=== PATIENT | female | born 1960 | race Caucasian/White ===

== ENCOUNTER 2024-10-30 13:40 | Observation (INO) | payer MEDICARE, OTHER ==
--- NOTE | 2024-10-30 14:44 | ED ---
General Adult HPI - General Chief complaint: Nausea/Vomiting/Diarrhea Stated complaint: Transfer Time Seen by Provider: 10/30/24 13:45 Source: patient Mode of arrival: EMS Limitations: no limitations - History of Present Illness Initial comments: 64-year-old female presented to [place] with complaints of nausea, vomiting, diarrhea for 5 days. She also had dizziness. She was seen in her ER yesterday and diagnosed with gastroenteritis. She was given Zofran. Patient was discharged home with this medication but states it has not been helping. S he presented again to the emergency department and had intractable vomiting with a low CO2. They did recommend transfer to a facility with higher level of care. Patient was given Zofran and fluids today in the emergency department before transfer. Patient denies headache. Does admit to room spinning sensation with pain in the left ear dizziness is worse with positional changes. She admits to generalized abdominal discomfort. No changes in her bowel or bladder habits. No other alleviating, precipitating or modifying factors - Related Data Home Medications Medication Instructions Recorded Confirmed Apixaban [Eliquis] 5 mg PO BID 10/30/24 10/30/24 Brimonidine Tartrate/Timolol 1 drop BOTH EYES BID 10/30/24 10/30/24 [Brimonidine-Timolol 0.2%-0.5%] Ergocalciferol [Vitamin D2 (1250 1,250 mcg PO WE 10/30/24 10/30/24 Mcg = 09156 Iu)] Ferrous Sulfate [Feosol] 325 mg PO BID 10/30/24 10/30/24 Isosorbide Mononitrate ER [Imdur] 60 mg PO DAILY 10/30/24 10/30/24 Losartan/Hydrochlorothiazide 1 tab PO DAILY 10/30/24 10/30/24 [Hyzaar 100-25 Tablet] Magnesium 200 mg PO DAILY 10/30/24 10/30/24 Metoprolol Succinate (ER) [Toprol 50 mg PO DAILY 10/30/24 10/30/24 Xl] Montelukast [Singulair] 10 mg PO HS 10/30/24 10/30/24 Multivitamins, Thera [Multivitamin 1 tab PO DAILY 10/30/24 10/30/24 (formulary)] Omeprazole [PriLOSEC] 40 mg PO DAILY 10/30/24 10/30/24 Ondansetron Odt [Zofran Odt] 4 mg PO Q4H PRN 10/30/24 10/30/24 Rosuvastatin [Crestor] 20 mg PO HS 10/30/24 10/30/24 Allergies Allergy/AdvReac Type Severity Reaction Status Date / Time latex Allergy Unknown Verified 10/30/24 17:01 lisinopril Allergy Swelling Verified 10/30/24 17:01 mold Allergy Unknown Verified 10/30/24 17:01 Review of Systems ROS Statement: Those systems with pertinent positive or pertinent negative responses have been documented in the HPI. ROS Other: All systems not noted in ROS Statement are negative. Past Medical History Past Medical History: Hypertension History of Any Multi-Drug Resistant Organisms: None Reported Past Surgical History: Cholecystectomy, Joint Replacement, Tubal Ligation Past Psychological History: No Psychological Hx Reported Smoking Status: Former smoker Past Alcohol Use History: None Reported Past Drug Use History: None Reported General Exam Limitations: no limitations General appearance: alert, in no apparent distress Head exam: Present: atraumatic, normocephalic, normal inspection Eye exam: Present: PERRL, EOMI, nystagmus (to the left). Absent: scleral icterus, conjunctival injection, periorbital swelling ENT exam: Present: normal exam, mucous membranes moist Neck exam: Present: normal inspection. Absent: tenderness, meningismus, l ymphadenopathy Respiratory exam: Present: normal lung sounds bilaterally. Absent: respiratory distress, wheezes, rales, rhonchi, stridor Cardiovascular Exam: Present: regular rate, normal rhythm, normal heart sounds. Absent: systolic murmur, diastolic murmur, rubs, gallop, clicks GI/Abdominal exam: Present: soft, normal bowel sounds. Absent: distended, tenderness, guarding, rebound, rigid Extremities exam: Present: normal inspection, full ROM, normal capillary refill. Absent: tenderness, pedal edema, joint swelling, calf tenderness Back exam: Present: normal inspection Neurological exam: Present: alert, oriented X3, CN II-XII intact Psychiatric exam: Present: normal affect, normal mood Skin exam: Present: warm, dry, intact, normal color. Absent: rash Course Vital Signs 10/30/24 10/30/24 10/30/24 13:42 15:04 16:00 Temperature 98.4 F Pulse Rate 96 100 102 H Respiratory 20 20 18 Rate Blood Pressure 164/105 169/105 172/103 O2 Sat by Pulse 99 99 99 Oximetry 10/30/24 10/30/24 10/30/24 18:17 21:04 22:02 Temperature Pulse Rate 100 116 H 82 Respiratory 18 18 18 Rate Blood Pressure 162/105 153/101 138/90 O2 Sat by Pulse 96 98 98 Oximetry 10/30/24 23:10 Temperature Pulse Rate 81 Respiratory 18 Rate Blood Pressure 153/98 O2 Sat by Pulse 98 Oximetry Medical Decision Making - Medical Decision Making Was pt. sent in by a medical professional or institution (, PA, [employer] LUMITE INJECTOR, urgent care, hospital, or assisted...) When possible be specific @ -Patient was sent from [place] Did you speak to anyone other than the patient for history (EMS, parent, family, police, friend...)? What history was obtained from this source @ -I spoke with the physician who transferred the patient from [place] Did you review nursing and triage notes (agree or disagree)? Why? @ -I reviewed and agree with nursing and triage notes Were old charts reviewed (outside hosp., previous admission, EMS record, old EKG, old radiological studies, urgent care reports/EKG's, assisted records)? Report findings @ -I reviewed the transfer packet from [place]. Laboratory studies were remarkable for a venous pH of 7.1. Urinalysis demonstrated 4+, only CO2 was 8. Anion gap 27. Glucose was 127. Kidney function normal CT abdomen pelvis was performed which demonstrates mild stranding surrounding the right kidney. CT brain also performed which demonstrated mild atrophy Differential Diagnosis (chest pain, altered mental status, abdominal pain women, abdominal pain men, vaginal bleeding, weakness, fever, dyspnea, syncope, headache, dizziness, GI bleed, back pain, seizure, CVA, palpatations, mental health, musculoskeletal)? @ -Differential Abdominal Pain Women: Appendicitis, Cholecystitis, diverticulosis, ischemic bowel, pancreatitis, hepatitis, UTI, gastroenteritis, AAA, incarcerated hernia, bowel obstruction, constipation, inflammatory bowel, hepatitis, peptic ulcer disease, splenic infarction, perforated viscus, vulvitis, ovarian torsion, PID, kidney stone, placenta abruption, this is not meant to be an all-inclusive list Differential Dizziness: Benign paroxysmal positional Vertigo, Meniere's disease, otitis media, acoustic neuroma, vertebrobasilar insufficiency, cerebellar stroke, encephalitis, hypovolemic, arrhythmia, coronary artery syndrome, anemia, this is not meant to be an all-inclusive list EKG interpreted by me (3pts min.). @ -Not done X-rays interpreted by me (1pt min.). @ -None done CT interpreted by me (1pt min.). @ -Yes which demonstrates no acute process U/S interpreted by me (1pt. min.). @ -None done What testing was considered but not performed or refused? (CT, X-rays, U/S, labs)? Why? @ -None What meds were considered but not given or refused? Why? @ -None Did you discuss the management of the patient with other professionals (professionals i.e. , PA, [employer] LUMITE INJECTOR, lab, RT, psych nurse, social service worker, auto transmission specialist, teacher, first officer, major case detective)? Give summary @ -Spoke with Dr. Hatfield who will admit the patient Was smoking cessation discussed for >3mins.? @ -No Was critical care preformed (if so, how long)? @ -No Were there social determinants of health that impacted care today? How? (Homelessness, low income, unemployed, alcoholism, drug addiction, transportation, low edu. Level, literacy, decrease access to med. care, fdc, rehab)? @ -No Was there de-escalation of care discussed even if they declined (Discuss DNR or withdrawal of care, Hospice)? DNR status @ -No What co-morbidities impacted this encounter? (DM, HTN, Smoking, COPD, CAD, Can cer, CVA, ARF, Chemo, Hep., AIDS, mental health diagnosis, sleep apnea, morbid obesity)? @ -None Was patient admitted / discharged? Hospital course, mention meds given and route, prescriptions, significant lab abnormalities, going to OR and other pertinent info. @ -Upon arrival patient seen and evaluated in 4. Thorough history and physical exam was performed. I patient is hooked up to D5.9 normal saline. She is given a dose of Valium for her dizziness. I completed a CT of the patient's hea d with contrast. No signs of acute occlusion. Patient will be admitted for anion gap metabolic acidosis as well as intractable vertigo. Neurology will be consulted. Patient admitted to Dr. Hatfield Undiagnosed new problem with uncertain prognosis? @ -No Drug Therapy requiring intensive monitoring for toxicity (Heparin, Nitro, Insulin, Cardizem)? @ -No Were any procedures done? @ -No Diagnosis/symptom? @ -Intractable nausea vomiting, anion gap metabolic acidosis, vertigo Acute, or Chronic, or Acute on Chronic? @ -Acute Uncomplicated (without systemic symptoms) or Complicated (systemic symptoms)? @ -Complicated Side effects of treatment? @ -No Exacerbation, Progression, or Severe Exacerbation? @ -No Poses a threat to life or bodily function? How? (Chest pain, [place], [place], pneumonia, PE, COPD, DKA, ARF, appy, cholecystitis, CVA, Diverticulitis, Homicidal, Suicidal, threat to staff... and all critical care pts) @ -No - Lab Data Result diagrams: 11/01/24 03:24 11/01/24 03:24 Lab Results 10/30/24 10/30/24 10/30/24 Range/Units 15:03 15:09 15:12 WBC 14.71 H (4.50-10.00) 10*3/uL RBC 4.94 (4.10-5.20) 10*6/uL Hgb 15.6 H (12.0-15.0) g/dL Hct 45.9 (37.2-46.3) % MCV 92.9 (80.0-97.0) fL MCH 31.6 (27.0-32.0) pg MCHC 34.0 (32.0-37.0) g/dL Plt Count 303 (140-440) 10*3/uL MPV 10.0 (9.5-12.2) fL Immature Gran % (Auto) 2.4 % Neutrophils % 88.9 % Lymphocytes % 4.6 % Monocytes % 3.7 % Eosinophils % 0.1 % Basophils % 0.3 % Immature Gran # 0.36 H (0.00-0.04) 10*3/uL Neutrophils # 13.06 H (1.80-7.70) 10*3/uL Lymphocytes # 0.68 L (0.90-5.00) 10*3/uL Monocytes # 0.55 (0.20-1.00) 10*3/uL Eosinophils # 0.01 L (0.04-0.35) 10*3/uL Basophils # 0.05 (0.00-0.10) 10*3/uL Manual Slide Review Performed Sodium (137-145) mmol/L Potassium (3.5-5.1) mmol/L Chloride (98-107) mmol/L Carbon Dioxide (22-30) mmol/L Anion Gap mmol/L BUN (7-17) mg/dL Creatinine (0.52-1.04) mg/dL Est GFR (CKD-EPI)AfAm (>60 ml/min/1.73 sqM) Est GFR (CKD-EPI)NonAf (>60 ml/min/1.73 sqM) Glucose (74-99) mg/dL POC Glucose (mg/dL) 132 H 130 H (70-110) mg/dL POC Glu Solid Waste Facility Supervisor ID Rea Leyva Calcium (8.4-10.2) mg/dL Total Bilirubin (0.2-1.3) mg/dL AST (14-36) U/L ALT (4-34) U/L Alkaline Phosphatase (38-126) U/L Total Protein (6.3-8.2) g/dL Albumin (3.5-5.0) g/dL / Range/Units 15:12 WBC (4.50-10.00) 10*3/uL RBC (4.10-5.20) 10*6/uL Hgb (12.0-15.0) g/dL Hct (37.2-46.3) % MCV (80.0-97.0) fL MCH (27.0-32.0) pg MCHC (32.0-37.0) g/dL Plt Count (140-440) 10*3/uL MPV (9.5-12.2) fL Immature Gran % (Auto) % Neutrophils % % Lymphocytes % % Monocytes % % Eosinophils % % Basophils % % Immature Gran # (0.00-0.04) 10*3/uL Neutrophils # (1.80-7.70) 10*3/uL Lymphocytes # (0.90-5.00) 10*3/uL Monocytes # (0.20-1.00) 10*3/uL Eosinophils # (0.04-0.35) 10*3/uL Basophils # (0.00-0.10) 10*3/uL Manual Slide Review Sodium 143 (137-145) mmol/L Potassium 3.7 (3.5-5.1) mmol/L Chloride 112 H (98-107) mmol/L Carbon Dioxide <5 L* (22-30) mmol/L Anion Gap mmol/L BUN 7 (7-17) mg/dL Creatinine 0.59 (0.52-1.04) mg/dL Est GFR (CKD-EPI)AfAm >90 (>60 ml/min/1.73 sqM) Est GFR (CKD-EPI)NonAf >90 (>60 ml/min/1.73 sqM) Glucose 126 H (74-99) mg/dL POC Glucose (mg/dL) (70-110) mg/dL POC Glu Solid Waste Facility Supervisor ID Calcium 10.3 H (8.4-10.2) mg/dL Total Bilirubin 0.6 (0.2-1.3) mg/dL AST 21 (14-36) U/L ALT 34 (4-34) U/L Alkaline Phosphatase 145 H (38-126) U/L Total Protein 7.7 (6.3-8.2) g/dL Albumin 4.5 (3.5-5.0) g/dL Disposition Clinical Impression: Vertigo, Nausea and vomiting, Dehydration Disposition: ADMITTED IP TO THIS [facility] Condition: Serious Is patient prescribed a controlled substance at d/c from ED?: No Time of Disposition: 17:23 Decision to Admit Reason: Admit from EC Decision Date: 10/30/24 Decision Time: 17:23
[2024-10-30 15:04] LABS: Glucose,Whole Blood 132 mg/dL (70-110)
[2024-10-30] MEDS: METOCLOPRAMIDE 5 MG/ML 2 ML VIAL IVP STA (15:09)
[2024-10-30 15:12] LABS: Glucose,Whole Blood 130 mg/dL (70-110)
[2024-10-30] MEDS: DEXTROSE 5%-0.9% NACL 1,000 ML IV SCH (15:14)
[2024-10-30 15:28] LABS: Basophils # (A) 0.05 10*3/uL (0.00-0.10); Basophils % (A) 0.3 %; Eosinophils # (A) 0.01 10*3/uL (0.04-0.35); Eosinophils % (A) 0.1 %; HCT 45.9 % (37.2-46.3); HGB 15.6 g/dL (12.0-15.0); Lymphocytes # (A) 0.68 10*3/uL (0.90-5.00); Lymphocytes % (A) 4.6 %; MCH 31.6 pg (27.0-32.0); MCHC 34.0 g/dL (32.0-37.0); MCV 92.9 fL (80.0-97.0); Monocytes # (A) 0.55 10*3/uL (0.20-1.00); Monocytes % (A) 3.7 %; Neutrophils # (A) 13.06 10*3/uL (1.80-7.70); Neutrophils % (A) 88.9 %; RBC 4.94 10*6/uL (4.10-5.20); RDW 16.2 % (11.5-14.5); WBC 14.71 10*3/uL (4.50-10.00)
[2024-10-30 15:48] LABS: Platelet Count 303 10*3/uL (140-440)
[2024-10-30 15:50] LABS: ALT 34 U/L (4-34); AST 21 U/L (14-36); African American GFR (CKD) >90 (>60 ml/min/1.73 sqM); Albumin 4.5 g/dL (3.5-5.0); Alkaline Phosphatase 145 U/L (38-126); Blood Urea Nitrogen 7 mg/dL (7-17); Calcium 10.3 mg/dL (8.4-10.2); Chloride 112 mmol/L (98-107); Glucose 126 mg/dL (74-99); Non-African American GFR(CKD) >90 (>60 ml/min/1.73 sqM); Potassium 3.7 mmol/L (3.5-5.1); Sodium 143 mmol/L (137-145); Total Protein 7.7 g/dL (6.3-8.2)
[2024-10-30 16:07] LABS: Carbon Dioxide <5 mmol/L (22-30)
--- NOTE | 2024-10-30 17:20 | CT ---
EXAMINATION TYPE: CT angio head neck DATE OF EXAM: 10/30/2024 4:59 PM COMPARISON: None. CLINICAL INDICATION: Female, 64 years old with history of intractable vertigo; PHH, dizzy, weakness TECHNIQUE: Axially acquired helical CT angiogram of the head and neck was obtained with contrast. Axi al images are supplemented with 3D reconstructions and MIP images which were post-processed at an in dependent workstation. NASCET criteria used. Contrast used:65 mL of Isovue 370 with IV Contrast, Oral contrast used: None. CT DLP: 1649.6 mGycm, Automated exposure control for dose reduction was used. FINDINGS: CT BRAIN: Extra-axial spaces: No abnormal extra-axial fluid collections. Ventricular system: Dilatation in proportion to cerebral atrophy. Cerebral parenchyma: Cerebral atrophy. No acute intraparenchymal hemorrhage or mass effect. The parada -white junction is well differentiated. Scattered hypoattenuating areas are seen within the white mat ter. Cerebellum: Unremarkable. Mass effect: No evidence of midline shift. Intracranial vasculature: Atherosclerotic calcifications of the intracranial vessels. Soft tissues: Normal. Calvarium/osseous structures: No depressed skull fracture. Paranasal sinuses and mastoid air cells: Clear. Visualized orbits: Bilateral aphakia CTA HEAD: No evidence of acute intracranial hemorrhage, mass effect, or midline shift. The ventricles, sulci, a nd cisterns are unremarkable. Vertebral arteries: The vertebral arteries are patent. Vertebral artery dominance: Codominant Basilar artery: The basilar artery is intact. The basilar artery bifurcation is normal. Internal Carotid arteries: The cervical, petrous, cavernous and supraclinoid segments are normal. HUMBLE: Patent with no evidence of aneurysm. ACOM: Present without evidence of aneurysm. MCA: Patent with no evidence of aneurysm. CEO & BOARD DIRECTOR: Patent with no evidence of aneurysm. PCOM: Hypoplastic bilaterally. Dural sinuses: Patent. CTA NECK: Right Carotid System: The common carotid and external carotid arteries are patent. There is less than 25% stenosis at the c arotid bifurcation secondary to calcified/noncalcified plaque. The rest of the internal carotid arter y is patent. Left Carotid System: The common carotid artery and external carotid artery are patent. The carotid bifurcation demonstrate s no evidence of hemodynamically significant stenosis. The remaining portions of the internal carotid artery demonstrate normal size without significant narrowing. Vertebral arteries are patent without evidence hemodynamically significant stenosis. There is a three-vessel aortic arch. The origins of the great vessels are patent. No evidence of hemo dynamically significant stenosis. IMPRESSION: 1. No evidence of dissection of the cervical internal carotid arteries or vertebral arteries. 2. No any evidence of significant stenosis at the carotid bifurcations. 3. No evidence of intracranial high-grade stenosis or intracranial aneurysm. [facility], , 10/30/2024 5:18 PM
[2024-10-30] MEDS ORDERED: NALOXONE 0.4 MG/ML 1 ML VIAL IV PRN (17:23)
[2024-10-30] MEDS ORDERED: MECLIZINE 25 MG TAB PO PRN (17:25)
[2024-10-30] MEDS: PANTOPRAZOLE 40 MG/10 ML VIAL IV SCH (18:10)
--- NOTE | 2024-10-30 19:16 | P.CNNES ---
History of Present Illness Consult date: 10/30/24 Requesting physician: Kathy Coronel Reason for Consult: intractable vertigo History of Present Illness: This is a 64-year-old woman who presents the emergency department because of nausea, vomiting, diarrhea and dizziness for the last 5 days. Patient stated that she has been having recurrent nausea vomiting diarrhea for 5 days and recently also been experiencing in association dizziness. She describes the dizziness as the room spinning and has blurry vision. The dizziness is mostly with movement but does not have it with rest but mostly its aggravated with movement. She does have ringing in the ears. Seems that she was recently diagnosed with gastroenteritis yesterday and she has been taking Zofran. She de nies any focal weakness. She has generalized weakness. Denies any fevers. Denies any speech difficulty or difficulty swallowing. Denies any history of stroke. Some of the workup during this hospital visit consisted of: Except less than 5, chloride 105, I reviewed the rest of the lab work CT enterography of the head and neck is reported as no evidence of dissection or cervical internal carotid artery or vertebral artery. No any evidence of significant stenosis at the carotid bifurcation. No evidence of intracranial high-grade stenosis or intracranial aneurysm. Review of Systems As per HPI Past Medical History Past Medical History: Hypertension History of Any Multi-Drug Resistant Organisms: None Reported Past Surgical History: Cholecystectomy, Joint Replacement, Tubal Ligation Past Psychological History: No Psychological Hx Reported Smoking Status: Former smoker Past Alcohol Use History: None Reported Past Drug Use History: None Reported Medications and Allergies Home Medications Medication Instructions Recorded Confirmed Type Apixaban [Eliquis] 5 mg PO BID 10/30/24 10/30/24 History Brimonidine Tartrate/Timolol 1 drop BOTH EYES BID 10/30/24 10/30/24 History [Brimonidine-Timolol 0.2%-0.5%] Ergocalciferol [Vitamin D2 (1250 1,250 mcg PO WE 10/30/24 10/30/24 History Mcg = 05373 Iu)] Ferrous Sulfate [Feosol] 325 mg PO BID 10/30/24 10/30/24 History Isosorbide Mononitrate ER [Imdur] 60 mg PO DAILY 10/30/24 10/30/24 History Losartan/Hydrochlorothiazide 1 tab PO DAILY 10/30/24 10/30/24 History [Hyzaar 100-25 Tablet] Magnesium 200 mg PO DAILY 10/30/24 10/30/24 History Metoprolol Succinate (ER) [Toprol 50 mg PO DAILY 10/30/24 10/30/24 History Xl] Montelukast [Singulair] 10 mg PO HS 10/30/24 10/30/24 History Multivitamins, Thera [Multivitamin 1 tab PO DAILY 10/30/24 10/30/24 History (formulary)] Omeprazole [PriLOSEC] 40 mg PO DAILY 10/30/24 10/30/24 History Ondansetron Odt [Zofran Odt] 4 mg PO Q4H PRN 10/30/24 10/30/24 History Rosuvastatin [Crestor] 20 mg PO HS 10/30/24 10/30/24 History Allergies Allergy/AdvReac Type Severity Reaction Status Date / Time latex Allergy Unknown Verified 10/30/24 17:01 lisinopril Allergy Swelling Verified 10/30/24 17:01 mold Allergy Unknown Verified 10/30/24 17:01 Physical Examination - Vital Signs Vital Signs: Vital Signs Temp Pulse Resp BP Pulse Ox 10/30/24 18:17 100 18 162/105 96 10/30/24 16:00 102 H 18 172/103 99 10/30/24 15:04 100 20 169/105 99 10/30/24 13:42 98.4 F 96 20 164/105 99 Intake and Output 10/30/24 10/30/24 10/30/24 06:59 14:59 22:59 Other: Weight 113.398 kg GENERAL: The patient is lying in bed and is not in acute distress. NEUROLOGICAL: Higher mental function: The patient is awake, alert, oriented to self, place and time. Patient is following commands. No aphasia and no neglect. Cranial nerves: The pupils are round, equal and reactive to light and accommodation. Visual jarrell are full to confrontation throughout. Extraocular movement is subtle nystagmus that is worse looking to left. Facial sensation is normal to touch throughout. The facial strength is normal throughout. Hearing is mildly decreased bilaterally to hand rub. Tongue is midline and moved [id number] without any difficulty. No dysarthria is noted. Shoulder shrug is normal bilaterally. Motor: The strength is 5 over 5 throughout. Normal tone and bulk. Cerebellum: Normal finger to nose bilaterally. Sensation: Sensation is normal to touch throughout. Results - Laboratory Findings CBC and BMP: 10/30/24 15:12 10/30/24 15:12 Abnormal Lab Findings: Abnormal Labs 10/30/24 10/30/24 10/30/24 15:03 15:09 15:12 WBC 14.71 H Hgb 15.6 H Immature Gran # 0.36 H Neutrophils # 13.06 H Lymphocytes # 0.68 L Eosinophils # 0.01 L Chloride Carbon Dioxide Glucose POC Glucose (mg/dL) 132 H 130 H Calcium Alkaline Phosphatase 10/30/24 15:12 WBC Hgb Immature Gran # Neutrophils # Lymphocytes # Eosinophils # Chloride 112 H Carbon Dioxide <5 L* Glucose 126 H POC Glucose (mg/dL) Calcium 10.3 H Alkaline Phosphatase 145 H Assessment and Plan Assessment: This is a 64-year-old woman who has been having nausea, vomiting, diarrhea and dizziness for the last 5 days. Recently diagnosed with gastroenteritis and is prescribed Zofran Acute Vertigo seems more peripheral Recent diagnosis of gastroenteritis Plan: In the ED the patient was given Valium once. He was also given Reglan 10 mg once and was started on Zofran 4 mg every 8 hours as needed. Meclizine 25 mg 1 tablet 3 times daily as needed and I change it to scheduled for at least 7 days and after that as needed. Recommend IV fluids I ordered MRI of the brain with and without to rule out any central process If MRI is negative and patient continues to have dizziness then recommend the patient to follow-up with outpatient ENT and vestibular rehab therapy. Will defer the rest of medical management to primary team. Thank you for the consultation. Time with Patient: Greater than 30
[2024-10-30] MEDS: LABETALOL 5 MG/ML VIAL MDV IVP STA (21:24)
[2024-10-30] MEDS: APIXABAN 5 MG TAB PO SCH (21:26)
[2024-10-30] MEDS: MONTELUKAST 10 MG TAB PO SCH (21:26)
[2024-10-30] MEDS: MECLIZINE 25 MG TAB PO STA (21:27)
[2024-10-30] MEDS: ATORVASTATIN 40 MG TAB PO SCH (21:29)
[2024-10-31] MEDS: ONDANSETRON 4 MG/2 ML VIAL IVP PRN (01:31)
[2024-10-31] MEDS: SODIUM CHLORIDE 0.9% 1,000 ML IV SCH (01:37)
--- NOTE | 2024-10-31 01:54 | HP ---
HISTORY AND PHYSICAL HISTORY OF PRESENT ILLNESS: A 64-year-old white female came to [place] complaining of nausea, vomiting, and diarrhea for 5 days, dizziness, and yesterday diagnosed with gastroenteritis, given Zofran, which has not been helping. She still consistently vomits. We will get a GI doctor to see her. MEDICINES: 1. Eliquis 5 b.i.d. 2. Timolol daily. 3. Iron sulfate daily. 4. Imdur 30 daily. 5. Hyzaar daily. 6. Metoprolol succinate 50 daily. 7. Singulair 10 mg daily. PAST MEDICAL HISTORY: Hypertension, cholecystectomy, tubal ligation. PHYSICAL EXAMINATION: VITAL SIGNS: Temperature 98.4, pulse 90-100, respiratory rate 16-18, O2 saturation is 99%, blood pressure 160s/105. BMI is over 30. HEMATOLOGY: 2+ edema. CARDIOVASCULAR: S1, S2. LUNGS: Transmitted upper airway sounds. GI: Soft, normal bowel sounds. LABORATORY DATA: White count is elevated at 14.71, hemoglobin is 15.6. ASSESSMENT AND PLAN: nausea, vomiting, dehydration. Rehydrate. Angiography, CT negative. Please see further orders. MMODL / IJN: [id number] /
[2024-10-31] MEDS ORDERED: hydrALAZINE HCL 20 MG/ML 1 ML VIAL IVP PRN (03:49)
[2024-10-31 04:01] LABS: Basophils # (A) 0.04 10*3/uL (0.00-0.10); Basophils % (A) 0.2 %; Eosinophils # (A) 0.00 10*3/uL (0.04-0.35); Eosinophils % (A) 0.0 %; HCT 44.2 % (37.2-46.3); HGB 15.2 g/dL (12.0-15.0); Lymphocytes # (A) 0.73 10*3/uL (0.90-5.00); Lymphocytes % (A) 3.9 %; MCH 31.9 pg (27.0-32.0); MCHC 34.4 g/dL (32.0-37.0); MCV 92.7 fL (80.0-97.0); Monocytes # (A) 0.68 10*3/uL (0.20-1.00); Monocytes % (A) 3.6 %; Neutrophils # (A) 17.00 10*3/uL (1.80-7.70); Neutrophils % (A) 91.2 %; Platelet Count 225 10*3/uL (140-440); RBC 4.77 10*6/uL (4.10-5.20); RDW 16.2 % (11.5-14.5); WBC 18.66 10*3/uL (4.50-10.00)
[2024-10-31 04:18] LABS: African American GFR (CKD) >90 (>60 ml/min/1.73 sqM); Anion Gap 23 mmol/L; Blood Urea Nitrogen 8 mg/dL (7-17); Calcium 10.1 mg/dL (8.4-10.2); Chloride 112 mmol/L (98-107); Glucose 149 mg/dL (74-99); Non-African American GFR(CKD) >90 (>60 ml/min/1.73 sqM); Potassium 3.1 mmol/L (3.5-5.1); Sodium 140 mmol/L (137-145)
[2024-10-31 04:27] LABS: Carbon Dioxide 5 mmol/L (22-30)
[2024-10-31] MEDS: amLODIPine 5 MG TAB PO SCH (04:36)
[2024-10-31 06:01] LABS: Glucose,Whole Blood 164 mg/dL (70-110)
[2024-10-31] MEDS ORDERED: Potassium Replacement Protocol 1 EACH MISC MISCELLANE PRN (07:41)
[2024-10-31] MEDS: NON FORMULARY DRUG (Brimonidine Tartrate/Timolol [Brimonidine-Timolol 0.2%-0.5%] 5 ML Drop BOTH EYES SCH (07:45)
[2024-10-31] MEDS: POTASSIUM CHLORIDE 10 MEQ in WATER FOR INJECTION 1 100ML.BAG IVPB SCH (08:13)
[2024-10-31] MEDS: METOPROLOL SUCCINATE (ER) 50 MG TAB.ER.24H PO SCH (08:14)
[2024-10-31] MEDS: MAGNESIUM OXIDE 400 MG TAB PO SCH (08:14)
[2024-10-31] MEDS: ISOSORBIDE MONONITRATE ER 60 MG TAB.ER.24H PO SCH (08:15)
[2024-10-31] MEDS: LOSARTAN 50 MG TAB PO SCH (08:15)
[2024-10-31] MEDS: hydroCHLOROthiazide 25 MG TAB PO SCH (08:15)
[2024-10-31] MEDS: MECLIZINE 25 MG TAB PO SCH (08:16)
[2024-10-31] MEDS: TIMOLOL 0.5% OPHTH DROPS 5 ML BTL BOTH EYES SCH (08:17)
[2024-10-31] MEDS: BRIMONIDINE TARTRATE 0.2% DROPS 5 ML BTL BOTH EYES SCH (08:18)
[2024-10-31] MEDS ORDERED: PANTOPRAZOLE 40 MG TABLET PO SCH (09:00)
[2024-10-31] MEDS ORDERED: NON FORMULARY DRUG (Losartan/Hydrochlorothiazide [Hyzaar 100-25 Tablet] 1 EACH Tablet) PO SCH (09:00)
[2024-10-31] MEDS: IOPAMIDOL CONTRAST (ORAL USE) VIAL PO PRN (09:30)
[2024-10-31] MEDS ORDERED: DICYCLOMINE 10 MG CAP PO PRN (09:41)
--- NOTE | 2024-10-31 11:35 | P.CONS ---
History of Present Illness - Reason for Consult Consult date: 10/31/24 Nausea and vomiting Requesting physician: Billy Farfan - Chief Complaint Nausea vomiting and diarrhea, vertigo - History of Present Illness This is a pleasant 64-year-old woman who presents the emergency department because of nausea, vomiting, diarrhea and dizziness for the last 5 days. Patient was seen at [facility] a couple days ago was given some Zofran for her symptoms and sent home however symptoms did not improve and she came in for further evaluation. Patient stated that she has been having recurrent nausea vomiting diarrhea for 5 days and recently also been experiencing in association dizziness. She describes the dizziness as the room spinning and has blurry vision. The dizziness is mostly with movement but does not have it with rest but mostly its aggravated with movement. She does have ringing in the ears. She denies any fevers or chills. Denies any recent sick contacts. States she has chronic diarrhea she has seen electrocardiograph technician Dr. Hinton for it in the past and he has prescribed her dicyclomine however she stopped taking it because she had no further medication. States the diarrhea is usually 3-5 times a day. She has not tried taking any [id number] medication for her diarrhea. Last colonoscopy she believes was about [address] Lockwood with findings of polyps. Past medical history includes hypertension and deep vein thrombosis and is on Eliquis. She denies any blood in her stool or black stool. No hematemesis. Last episode of emesis was yesterday. Review of Systems REVIEW OF SYSTEMS: CARDIOPULMONARY: No chest pain or shortness of breath. Gastrointestinal: Abdominal pain that is intermittent and right lower abdomen. Nausea with vomiting for past 5 days. No hematemesis, coffee-ground emesis. Chronic diarrhea. No rectal bleeding, or melena. GENITOURINARY: No dysuria or hematuria. MUSCULOSKELETAL: Reports normal range of motion., Joint pain. SKIN: No rashes. No jaundice. ENDOCRINE: No chills, fevers. No excessive weight gain or loss. No polydipsia or polyuria. PSYCHIATRIC: Unremarkable. NEUROLOGY: No change in mental status. Dizziness with movement. ENT: Vision unremarkable. CONSTITUTIONAL: No recent weight loss. No fever, chills, night sweats. Past Medical History Past Medical History: Atrial Fibrillation, COPD, Deep Vein Thrombosis (DVT), Eye Disorder, Hyperlipidemia, Hypertension, Pneumonia, Sleep Apnea/CPAP/BIPAP Additional Past Medical History / Comment(s): narrow angle gluacoma, History of Any Multi-Drug Resistant Organisms: None Reported Past Surgical History: Cholecystectomy, Joint Replacement, Tubal Ligation Past Anesthesia/Blood Transfusion Reactions: No Reported Reaction Past Psychological History: Depression Smoking Status: Former smoker Past Alcohol Use History: None Reported Past Drug Use History: None Reported Medications and Allergies Home Medications Medication Instructions Recorded Confirmed Type Apixaban [Eliquis] 5 mg PO BID 10/30/24 10/30/24 History Brimonidine Tartrate/Timolol 1 drop BOTH EYES BID 10/30/24 10/30/24 History [Brimonidine-Timolol 0.2%-0.5%] Ergocalciferol [Vitamin D2 (1250 1,250 mcg PO WE 10/30/24 10/30/24 History Mcg = 45555 Iu)] Ferrous Sulfate [Feosol] 325 mg PO BID 10/30/24 10/30/24 History Isosorbide Mononitrate ER [Imdur] 60 mg PO DAILY 10/30/24 10/30/24 History Losartan/Hydrochlorothiazide 1 tab PO DAILY 10/30/24 10/30/24 History [Hyzaar 100-25 Tablet] Magnesium 200 mg PO DAILY 10/30/24 10/30/24 History Metoprolol Succinate (ER) [Toprol 50 mg PO DAILY 10/30/24 10/30/24 History Xl] Montelukast [Singulair] 10 mg PO HS 10/30/24 10/30/24 History Multivitamins, Thera [Multivitamin 1 tab PO DAILY 10/30/24 10/30/24 History (formulary)] Omeprazole [PriLOSEC] 40 mg PO DAILY 10/30/24 10/30/24 History Ondansetron Odt [Zofran Odt] 4 mg PO Q4H PRN 10/30/24 10/30/24 History Rosuvastatin [Crestor] 20 mg PO HS 10/30/24 10/30/24 History Allergies Allergy/AdvReac Type Severity Reaction Status Date / Time latex Allergy Unknown Verified 10/30/24 17:01 lisinopril Allergy Swelling Verified 10/30/24 17:01 mold Allergy Unknown Verified 10/30/24 17:01 Physical Exam Vitals: Vital Signs Temp Pulse Pulse Resp BP BP Pulse Ox 10/31/24 08:09 98.0 F 79 143/87 98 10/31/24 04:30 80 153/97 10/31/24 03:00 98 F 75 17 158/101 98 10/31/24 01:21 78 141/88 10/31/24 00:13 99.3 F 81 17 162/107 99 10/30/24 23:10 81 18 153/98 98 10/30/24 22:02 82 18 138/90 98 10/30/24 21:04 116 H 18 153/101 98 10/30/24 18:17 100 18 162/105 96 10/30/24 16:00 102 H 18 172/103 99 10/30/24 15:04 100 20 169/105 99 10/30/24 13:42 98.4 F 96 20 164/105 99 Intake and Output 10/30/24 10/31/24 10/31/24 22:59 06:59 14:59 Other: Voiding Method Bedside Commode # Voids 1 Weight 113.398 kg General appearance: The patient is alert, oriented, appears in no acute distress. HET: Head is normocephalic and atraumatic. Conjunctiva pink. Sclera anicteric. Neck: Supple without lymphadenopathy. Trachea midline. Heart: Regular. Lungs: Equal expansion, normal respiratory effort. Abdomen: Soft, mild right lower quadrant tenderness, nondistended. Skin: No rashes. No jaundice. Extremities: Normal skin color and turgor. No pedal edema. Neurological: No focal deficits. Alert and oriented x3. Results CBC & Chem 7: 10/31/24 03:34 10/31/24 03:34 Labs: Abnormal Lab Results - Last 24 Hours (Table) 10/30/24 10/30/24 10/30/24 Range/Units 15:03 15:09 15:12 WBC 14.71 H (4.50-10.00) 10*3/uL Hgb 15.6 H (12.0-15.0) g/dL Immature Gran # 0.36 H (0.00-0.04) 10*3/uL Neutrophils # 13.06 H (1.80-7.70) 10*3/uL Lymphocytes # 0.68 L (0.90-5.00) 10*3/uL Eosinophils # 0.01 L (0.04-0.35) 10*3/uL Potassium (3.5-5.1) mmol/L Chloride (98-107) mmol/L Carbon Dioxide (22-30) mmol/L Creatinine (0.52-1.04) mg/dL Glucose (74-99) mg/dL POC Glucose (mg/dL) 132 H 130 H (70-110) mg/dL Calcium (8.4-10.2) mg/dL Alkaline Phosphatase (38-126) U/L 10/30/24 10/31/24 10/31/24 Range/Units 15:12 03:34 03:34 WBC 18.66 H (4.50-10.00) 10*3/uL Hgb 15.2 H (12.0-15.0) g/dL Immature Gran # 0.21 H (0.00-0.04) 10*3/uL Neutrophils # 17.00 H (1.80-7.70) 10*3/uL Lymphocytes # 0.73 L (0.90-5.00) 10*3/uL Eosinophils # 0.00 L (0.04-0.35) 10*3/uL Potassium 3.1 L (3.5-5.1) mmol/L Chloride 112 H 112 H (98-107) mmol/L Carbon Dioxide <5 L* 5 L* (22-30) mmol/L Creatinine 0.49 L (0.52-1.04) mg/dL Glucose 126 H 149 H (74-99) mg/dL POC Glucose (mg/dL) (70-110) mg/dL Calcium 10.3 H (8.4-10.2) mg/dL Alkaline Phosphatase 145 H (38-126) U/L 10/31/24 Range/Units 05:59 WBC (4.50-10.00) 10*3/uL Hgb (12.0-15.0) g/dL Immature Gran # (0.00-0.04) 10*3/uL Neutrophils # (1.80-7.70) 10*3/uL Lymphocytes # (0.90-5.00) 10*3/uL Eosinophils # (0.04-0.35) 10*3/uL Potassium (3.5-5.1) mmol/L Chloride (98-107) mmol/L Carbon Dioxide (22-30) mmol/L Creatinine (0.52-1.04) mg/dL Glucose (74-99) mg/dL POC Glucose (mg/dL) 164 H (70-110) mg/dL Calcium (8.4-10.2) mg/dL Alkaline Phosphatase (38-126) U/L Assessment and Plan (1) Nausea and vomiting Narrative/Plan: 64-year-old female with recent onset of positional vertigo as well as nausea and vomiting for last 5 days duration also associated with diarrhea however appears that patient has had chronic diarrhea but is currently been going 3-5 times a day. Nausea and vomiting may be secondary to positional vertigo. Neurology is following and patient has been started on Antivert. She is also on Zofran with improvement in her nausea and vomiting. Patient also with recurrent right lower abdominal pain and states that she had bowel obstruction in the past. Will obtain CT of abdomen pelvis, continue symptomatic care with antiemetics and IV fluids, and will collect stool samples. Current Visit: Yes Status: Acute Code(s): R11.2 - NAUSEA WITH VOMITING, UNSPECIFIED SNOMED Code(s): 76316777 (2) Chronic diarrhea Current Visit: Yes Status: Acute Code(s): K52.9 - NONINFECTIVE GASTROENTERITIS AND COLITIS, UNSPECIFIED SNOMED Code(s): 970155762 (3) Abdominal pain Current Visit: Yes Status: Acute Code(s): R10.9 - UNSPECIFIED ABDOMINAL PAIN SNOMED Code(s): 72286472 (4) Vertigo Current Visit: Yes Status: Acute Code(s): R42 - DIZZINESS AND GIDDINESS SNOMED Code(s): 619615623 Plan: 1. Continue symptomatic and supportive care 2. Protonix 40 mg daily for GI prophylaxis 3. Antiemetics as needed 4. Continue Antivert 5. Stool studies ordered 6. Diet as tolerated 7. Will add dicyclomine 8. CT abdomen pelvis with contrast ordered 9. Further recommendations forthcoming based on clinical course Thank you for this consultation, we will continue to follow. Dr. Naina Marks I agree with the dictator's note, documented as a scribe by Shea Siddiqui.
[2024-10-31 12:00] LABS: Glucose,Whole Blood 126 mg/dL (70-110)
--- NOTE | 2024-10-31 13:42 | CT ---
EXAMINATION TYPE: CT abdomen pelvis w con DATE OF EXAM: 10/31/2024 11:53 AM COMPARISON: None. CLINICAL INDICATION: Female, 64 years old with history of Right lower quadrant abdominal pain, N/V/D; RLQ pain, NVD TECHNIQUE: CT of the abdomen and pelvis after IV contrast. Delayed images through the kidneys and cor onal/sagittal reconstructions performed. Contrast used:100 ml mL of Isovue 300 with IV Contrast, Oral contrast used: with Oral Contrast CT DLP: 1491.6 mGycm, Automated exposure control for dose reduction was used. FINDINGS: LOWER CHEST: Partially visualized groundglass opacity right middle lobe, axial image 1. Heart borderl ine enlarged. ABDOMEN LIVER: Unremarkable GALLBLADDER AND BILE DUCTS: Unremarkable. PANCREAS: Unremarkable. SPLEEN: Unremarkable. ADRENAL GLANDS: Diffuse thickening up to 2.2 cm thick on the left without discrete nodularity. Right appears unremarkable. KIDNEYS AND URETERS: Bilateral perinephric edema could reflect chronic kidney disease or senescent ch lorrie. 9 mm benign cortical cyst medial upper pole left kidney. Otherwise, symmetric uptake and excret ion of contrast from both kidneys. PELVIS BLADDER: No evidence for wall thickening or mass given limitations of exam. REPRODUCTIVE: Uterus anteverted. Both ovaries are visualized. ABDOMEN & PELVIS STOMACH AND BOWEL: Tiny hiatal hernia. Some contrast noted within the distal esophagus. Findings may reflect occurred versus esophageal dysmotility. No evidence of bowel obstruction. Appendix not seen. There are segmental fold thickening along the cecum and ascending colon. Contrast progressed to the r ectum. Scattered mild stool. PERITONEUM/RETROPERITONEUM: No evidence of pneumoperitoneum or free flui d. VASCULATURE: Ectatic lower descending thoracic aorta 2.6 cm MUSCULOSKELETAL: Advanced hypertrophic facet arthropathy mid to lower lumbar spine. Chronic appearing superior endplate Schmorl's nodes L4. LYMPH NODES: No gross evidence for lymphadenopathy. SOFT TISSUE/ABDOMINAL WALL: Unremarkable IMPRESSION: 1. Partially visualized groundglass opacity in the right middle lobe. Correlate with symptoms to exc lude pneumonitis. 2. Tiny hiatal hernia with some contrast in the visualized esophagus. Findings could reflect GERD or esophageal dysmotility. 3. Segmental fold thickening along the cecum and ascending colon. Correlate for nonspecific infectiou s or inflammatory colitis. 4. Prominent diffuse thickening of the left adrenal gland may be seen with adrenal hyperplasia. [facility], Workstation: [employer], 10/31/2024 1:40 PM
--- NOTE | 2024-10-31 15:41 | P.PN ---
Subjective Progress Note Date: 10/31/24 I am following-up with the patient and no further vomiting but continues to have dizziness. Otherwise denies any new neurological issues. Objective - Vital Signs Vital signs: Vital Signs Temp 98.2 F 10/31/24 10:17 Pulse 77 10/31/24 10:17 Resp 17 10/31/24 03:00 BP 142/94 10/31/24 10:17 Pulse Ox 98 10/31/24 10:17 FiO2 Intake & Output 10/30/24 10/31/24 10/31/24 18:59 06:59 18:59 Weight 113.398 kg 113.398 kg Other: Voiding Method Bedside Commode # Voids 1 - Exam GENERAL: The patient is lying in bed and is not in acute distress. NEUROLOGICAL: Higher mental function: The patient is awake, alert, oriented to self, place and time. Patient is following commands. No aphasia and no neglect. Cranial nerves: The pupils are round, equal and reactive to light and accommodation. Visual jarrell are full to confrontation throughout. Extraocular movement is subtle nystagmus that is worse looking to left. Facial sensation is normal to touch throughout. The facial strength is normal throughout. Hearing is mildly decreased bilaterally to hand rub. Tongue is midline and moved [id number] without any difficulty. No dysarthria is noted. Shoulder shrug is normal bilaterally. Motor: The strength is 5 over 5 throughout. Normal tone and bulk. Cerebellum: Normal finger to nose bilaterally. Sensation: Sensation is normal to touch throughout. Some of the workup during this hospital visit consisted of: CT enterography of the head and neck is reported as no evidence of dissection or cervical internal carotid artery or vertebral artery. No any evidence of significant stenosis at the carotid bifurcation. No evidence of intracranial high-grade stenosis or intracranial aneurysm. - Labs CBC & Chem 7: 10/31/24 03:34 10/31/24 03:34 Labs: Abnormal Lab Results - Last 24 Hours (Table) 10/30/24 10/30/24 10/31/24 Range/Units 15:12 15:12 03:34 WBC 14.71 H 18.66 H (4.50-10.00) 10*3/uL Hgb 15.6 H 15.2 H (12.0-15.0) g/dL Immature Gran # 0.36 H 0.21 H (0.00-0.04) 10*3/uL Neutrophils # 13.06 H 17.00 H (1.80-7.70) 10*3/uL Lymphocytes # 0.68 L 0.73 L (0.90-5.00) 10*3/uL Eosinophils # 0.01 L 0.00 L (0.04-0.35) 10*3/uL Potassium (3.5-5.1) mmol/L Chloride 112 H (98-107) mmol/L Carbon Dioxide <5 L* (22-30) mmol/L Creatinine (0.52-1.04) mg/dL Glucose 126 H (74-99) mg/dL POC Glucose (mg/dL) (70-110) mg/dL Calcium 10.3 H (8.4-10.2) mg/dL Alkaline Phosphatase 145 H (38-126) U/L 10/31/24 10/31/24 10/31/24 Range/Units 03:34 05:59 11:58 WBC (4.50-10.00) 10*3/uL Hgb (12.0-15.0) g/dL Immature Gran # (0.00-0.04) 10*3/uL Neutrophils # (1.80-7.70) 10*3/uL Lymphocytes # (0.90-5.00) 10*3/uL Eosinophils # (0.04-0.35) 10*3/uL Potassium 3.1 L (3.5-5.1) mmol/L Chloride 112 H (98-107) mmol/L Carbon Dioxide 5 L* (22-30) mmol/L Creatinine 0.49 L (0.52-1.04) mg/dL Glucose 149 H (74-99) mg/dL POC Glucose (mg/dL) 164 H 126 H (70-110) mg/dL Calcium (8.4-10.2) mg/dL Alkaline Phosphatase (38-126) U/L Assessment and Plan Assessment: This is a 64-year-old woman who has been having nausea, vomiting, diarrhea and dizziness for the last 5 days. Recently diagnosed with gastroenteritis and is prescribed Zofran Acute Vertigo seems more peripheral Recent diagnosis of gastroenteritis Plan: In the ED the patient was given Valium once. He was also given Reglan 10 mg once and was started on Zofran 4 mg every 8 hours as needed. Meclizine 25 mg 1 tablet 3 times daily as needed and I change it to scheduled for at least 7 days and after that as needed. Recommend IV fluids Pending official report of MRI of the brain with and without to rule out any central process. If MRI is negative and patient continues to have dizziness then recommend the patient to follow-up with outpatient ENT and vestibular rehab therapy. Will defer the rest of medical management to primary team. Time with Patient: Less than 30
--- NOTE | 2024-10-31 15:42 | MR ---
EXAMINATION TYPE: MR brain wo/w con DATE OF EXAM: 10/31/2024 2:48 PM COMPARISON: 10/30/2024. CLINICAL INDICATION: Female, 64 years old with history of dizziness with blurred vision; PHH, Dizzine ss, blurred vision. TECHNIQUE: Multi planar, multi sequence imaging was performed through the brain including: T1, T2, In version recovery, susceptibility weighted imaging and gradient echo imaging and Diffusion weighted im aging. The patient was then given intravenous contrast and multi planar, T1 fat-saturation images wer e obtained. IV Contrast: 11 mL Gadavist FINDINGS: The parada-white junctions, ventricular system, basal cisterns appear unremarkable. Diffusion-weighted imaging shows no evidence of restricted diffusion to suggest acute/subacute infarct. Intracranial ar terial flow voids are maintained. Midline structures show no abnormality. Scattered foci of high T2 s ignal intensity are seen within the periventricular white matter. The susceptibility weighted images do not reveal any evidence for micro-hemorrhage. After administration of gadolinium, no abnormal enha ncement is seen. The bone marrow signal is within normal limits. Paranasal sinuses and mastoid air cells: No significant paranasal sinus disease. T2 signal seen withi n the mastoid air cells on the right. Visualized orbits: Orbital contents are intact. IMPRESSION: 1. No evidence of intracranial mass, acute/subacute infarct, or abnormal enhancement. 2. Nonspecific white matter changes, likely related to small vessel ischemic disease. [facility], , 10/31/2024 3:40 PM
[2024-10-31 17:37] LABS: Bilirubin,Urine Negative (Negative); Blood,Urine Negative (Negative); Color,Urine Colorless; Glucose,Urine (UA) Negative (Negative); Ketones,Urine 1+ (Negative); Leukocyte Esterase,Urine Negative (Negative); Nitrite,Urine Negative (Negative); PH, Urine 6.0 (5.0-8.0); Protein,Urine Negative (Negative); Specific Gravity,Urine 1.030 (1.001-1.035); Urobilinogen,Urine <2.0 mg/dL (<2.0)
[2024-10-31 20:43] LABS: Glucose,Whole Blood 146 mg/dL (70-110)
--- NOTE | 2024-10-31 21:52 | P.CONS ---
History of Present Illness - Reason for Consult Consult date: 10/31/24 Leukocytosis Requesting physician: Billy Farfan - Chief Complaint Nausea vomiting and diarrhea x few days - History of Present Illness Patient is a 64-year-old female with a past medical history significant for Atrial Fibrillation, COPD, Deep Vein Thrombosis (DVT), Eye Disorder, Hyperlipidemia, Hypertension, Pneumonia, Sleep Apnea/CPAP/BIPAP presenting to the hospital presented initially for evaluation of nausea vomiting and diarrhea for the last 5 days patient was also complaining of dizziness patient did have a CT of abdominal pelvis completed at outside facility this was suspicious for pyelonephritis patient did have a CT abdominal pelvis completed t his facility with concern for right middle lobe groundglass opacity concerning for pneumonitis and there was also concern for segmental for thickening along the cecum and ascending colon correlate for nonspecific infectious or inflammatory colitis patient has been admitted to the hospital infectious was consulted for elevated white count patient denies high-grade fever or any chills did have 1 low-grade fever of 99 point 12:03 patient denies having any headache or URI symptoms no chest pain or shortness of breath occasional cough main symptom has been nausea vomiting as well as diarrhea some lower abdominal discomfort mostly dull aching moderate is without radiation patient did have a white count of 18.66 creatinine 0.49 Review of Systems Positive point and negatives has been mentioned in the HPI, complete review of systems was performed and all other systems are negative Past Medical History Past Medical History: Atrial Fibrillation, COPD, Deep Vein Thrombosis (DVT), Eye Disorder, Hyperlipidemia, Hypertension, Pneumonia, Sleep Apnea/CPAP/BIPAP Additional Past Medical History / Comment(s): narrow angle gluacoma, History of Any Multi-Drug Resistant Organisms: None Reported Past Surgical History: Cholecystectomy, Joint Replacement, Tubal Ligation Past Anesthesia/Blood Transfusion Reactions: No Reported Reaction Past Psychological History: Depression Smoking Status: Former smoker Past Alcohol Use History: None Reported Past Drug Use History: None Reported Medications and Allergies Home Medications Medication Instructions Recorded Confirmed Type Apixaban [Eliquis] 5 mg PO BID 10/30/24 10/30/24 History Brimonidine Tartrate/Timolol 1 drop BOTH EYES BID 10/30/24 10/30/24 History [Brimonidine-Timolol 0.2%-0.5%] Ergocalciferol [Vitamin D2 (1250 1,250 mcg PO WE 10/30/24 10/30/24 History Mcg = 97505 Iu)] Ferrous Sulfate [Feosol] 325 mg PO BID 10/30/24 10/30/24 History Isosorbide Mononitrate ER [Imdur] 60 mg PO DAILY 10/30/24 10/30/24 History Losartan/Hydrochlorothiazide 1 tab PO DAILY 10/30/24 10/30/24 History [Hyzaar 100-25 Tablet] Magnesium 200 mg PO DAILY 10/30/24 10/30/24 History Metoprolol Succinate (ER) [Toprol 50 mg PO DAILY 10/30/24 10/30/24 History Xl] Montelukast [Singulair] 10 mg PO HS 10/30/24 10/30/24 History Multivitamins, Thera [Multivitamin 1 tab PO DAILY 10/30/24 10/30/24 History (formulary)] Omeprazole [PriLOSEC] 40 mg PO DAILY 10/30/24 10/30/24 History Ondansetron Odt [Zofran Odt] 4 mg PO Q4H PRN 10/30/24 10/30/24 History Rosuvastatin [Crestor] 20 mg PO HS 10/30/24 10/30/24 History Allergies Allergy/AdvReac Type Severity Reaction Status Date / Time latex Allergy Unknown Verified 10/30/24 17:01 lisinopril Allergy Swelling Verified 10/30/24 17:01 mold Allergy Unknown Verified 10/30/24 17:01 Physical Exam Vitals: Vital Signs Temp Pulse Pulse Resp BP BP Pulse Ox 10/31/24 10:17 98.2 F 77 142/94 98 10/31/24 09:25 98.5 F 73 155/100 97 10/31/24 08:09 98.0 F 79 143/87 98 10/31/24 04:30 80 153/97 10/31/24 03:00 98 F 75 17 158/101 98 10/31/24 01:21 78 141/88 10/31/24 00:13 99.3 F 81 17 162/107 99 10/30/24 23:10 81 18 153/98 98 10/30/24 22:02 82 18 138/90 98 10/30/24 21:04 116 H 18 153/101 98 10/30/24 18:17 100 18 162/105 96 10/30/24 16:00 102 H 18 172/103 99 10/30/24 15:04 100 20 169/105 99 10/30/24 13:42 98.4 F 96 20 164/105 99 Intake and Output 10/30/24 10/31/24 10/31/24 22:59 06:59 14:59 Other: Voiding Method Bedside Commode # Voids 1 Weight 113.398 kg GENERAL DESCRIPTION: Elderly female lying in bed, no distress. No tachypnea or accessory muscle of respiration use. HEENT: Shows Pallor , no scleral icterus. Oral mucous membrane is dry. NECK: Trachea central, no thyromegaly. LUNGS: Unlabored breathing. Decreased breath sound at the base HEART: S1, S2, regular rate and rhythm. No loud murmur ABDOMEN: Soft, no tenderness , guarding or rigidity, no organomegaly EXTREMITIES: No edema of feet. SKIN: No rash, no masses palpable. NEUROLOGICAL: The patient is awake, alert, oriented x3, mood and affect normal. Results CBC & Chem 7: 10/31/24 03:34 10/31/24 03:34 Labs: Abnormal Lab Results - Last 24 Hours (Table) 10/30/24 10/30/24 10/30/24 Range/Units 15:03 15:09 15:12 WBC 14.71 H (4.50-10.00) 10*3/uL Hgb 15.6 H (12.0-15.0) g/dL Immature Gran # 0.36 H (0.00-0.04) 10*3/uL Neutrophils # 13.06 H (1.80-7.70) 10*3/uL Lymphocytes # 0.68 L (0.90-5.00) 10*3/uL Eosinophils # 0.01 L (0.04-0.35) 10*3/uL Potassium (3.5-5.1) mmol/L Chloride (98-107) mmol/L Carbon Dioxide (22-30) mmol/L Creatinine (0.52-1.04) mg/dL Glucose (74-99) mg/dL POC Glucose (mg/dL) 132 H 130 H (70-110) mg/dL Calcium (8.4-10.2) mg/dL Alkaline Phosphatase (38-126) U/L 10/30/24 10/31/24 10/31/24 Range/Units 15:12 03:34 03:34 WBC 18.66 H (4.50-10.00) 10*3/uL Hgb 15.2 H (12.0-15.0) g/dL Immature Gran # 0.21 H (0.00-0.04) 10*3/uL Neutrophils # 17.00 H (1.80-7.70) 10*3/uL Lymphocytes # 0.73 L (0.90-5.00) 10*3/uL Eosinophils # 0.00 L (0.04-0.35) 10*3/uL Potassium 3.1 L (3.5-5.1) mmol/L Chloride 112 H 112 H (98-107) mmol/L Carbon Dioxide <5 L* 5 L* (22-30) mmol/L Creatinine 0.49 L (0.52-1.04) mg/dL Glucose 126 H 149 H (74-99) mg/dL POC Glucose (mg/dL) (70-110) mg/dL Calcium 10.3 H (8.4-10.2) mg/dL Alkaline Phosphatase 145 H (38-126) U/L 10/31/24 Range/Units 05:59 WBC (4.50-10.00) 10*3/uL Hgb (12.0-15.0) g/dL Immature Gran # (0.00-0.04) 10*3/uL Neutrophils # (1.80-7.70) 10*3/uL Lymphocytes # (0.90-5.00) 10*3/uL Eosinophils # (0.04-0.35) 10*3/uL Potassium (3.5-5.1) mmol/L Chloride (98-107) mmol/L Carbon Dioxide (22-30) mmol/L Creatinine (0.52-1.04) mg/dL Glucose (74-99) mg/dL POC Glucose (mg/dL) 164 H (70-110) mg/dL Calcium (8.4-10.2) mg/dL Alkaline Phosphatase (38-126) U/L Assessment and Plan (1) Leukocytosis Current Visit: Yes Status: Acute Code(s): D72.829 - ELEVATED WHITE BLOOD CELL COUNT, UNSPECIFIED SNOMED Code(s): 519080396 (2) Colitis Current Visit: Yes Status: Acute Code(s): K52.9 - NONINFECTIVE GASTROENTERITIS AND COLITIS, UNSPECIFIED SNOMED Code(s): 06150186 (3) Pneumonitis Current Visit: Yes Status: Acute Code(s): J98.4 - OTHER DISORDERS OF LUNG SNOMED Code(s): 463769251 Plan: 1patient with elevated white count in this patient presented hospital with nausea vomiting and did have diarrhea in this patient did have a abnormal CT concerning for possible colitis likely infectious versus noninfectious etiology there was some abnormality of the right lower lobe with concern for possible aspiration pneumonitis 2-we will try to obtain stool culture as well as stool for C. difficile and try to obtain a sputum 3-will empirically start the patient Rocephin and Flagyl while waiting for the workup to be completed We will follow on clinical condition and cultures to further adjust medication if needed Thank you for this consultation we will follow the patient along with you Dictation was produced using [employer] dictation software. please excuse any grammatical, word or spelling errors. Time with Patient: Greater than 30
[2024-10-31] MEDS: metroNIDAZOLE 500 MG TAB PO SCH (23:25)
[2024-11-01 03:58] LABS: Basophils # (A) 0.02 10*3/uL (0.00-0.10); Basophils % (A) 0.2 %; Eosinophils # (A) 0.01 10*3/uL (0.04-0.35); Eosinophils % (A) 0.1 %; HCT 40.2 % (37.2-46.3); HGB 14.9 g/dL (12.0-15.0); Lymphocytes # (A) 1.20 10*3/uL (0.90-5.00); Lymphocytes % (A) 12.3 %; MCH 31.8 pg (27.0-32.0); MCHC 37.1 g/dL (32.0-37.0); Monocytes # (A) 0.73 10*3/uL (0.20-1.00); Monocytes % (A) 7.5 %; Neutrophils # (A) 7.76 10*3/uL (1.80-7.70); Neutrophils % (A) 79.6 %; Platelet Count 274 10*3/uL (140-440); RBC 4.68 10*6/uL (4.10-5.20); RDW 14.8 % (11.5-14.5); WBC 9.75 10*3/uL (4.50-10.00)
[2024-11-01 04:09] LABS: MCV 85.9 fL (80.0-97.0)
[2024-11-01 04:26] LABS: ALT 21 U/L (4-34); AST 17 U/L (14-36); African American GFR (CKD) >90 (>60 ml/min/1.73 sqM); Albumin 3.6 g/dL (3.5-5.0); Alkaline Phosphatase 119 U/L (38-126); Anion Gap 10 mmol/L; Blood Urea Nitrogen 8 mg/dL (7-17); Calcium 10.2 mg/dL (8.4-10.2); Carbon Dioxide 18 mmol/L (22-30); Chloride 107 mmol/L (98-107); Glucose 138 mg/dL (74-99); Non-African American GFR(CKD) >90 (>60 ml/min/1.73 sqM); Sodium 135 mmol/L (137-145); Total Protein 6.2 g/dL (6.3-8.2)
[2024-11-01 04:32] LABS: Potassium 2.6 mmol/L (3.5-5.1)
[2024-11-01] MEDS: POTASSIUM CHLORIDE ER 20 MEQ TAB.ER PO SCH ×2 (05:04→11:57)
[2024-11-01 06:04] LABS: Glucose,Whole Blood 157 mg/dL (70-110)
--- NOTE | 2024-11-01 09:45 | P.PN ---
Subjective Progress Note Date: 11/01/24 Principal diagnosis: Nausea and vomiting, vertigo This is a pleasant 64-year-old woman who presents the emergency department because of nausea, vomiting, diarrhea and dizziness for the last 5 days. Patient was seen at [facility] a couple days ago was given some Zofra n for her symptoms and sent home however symptoms did not improve and she came in for further evaluation. Patient stated that she has been having recurrent nausea vomiting diarrhea for 5 days and recently also been experiencing in association dizziness. She describes the dizziness as the room spinning and has blurry vision. The dizziness is mostly with movement but does not have it with rest but mostly its aggravated with movement. She does have ringing in the ears. She denies any fevers or chills. Denies any recent sick contacts. States she has chronic diarrhea she has seen assistant foreman Dr. Hinton for it in the past and he has prescribed her dicyclomine however she stopped taking it because she had no further medication. States the diarrhea is usually 3-5 times a day. She has not tried taking any [id number] medication for her diarrhea. Last colonoscopy she believes was about [address] Lockwood with findings of polyps. Past medical history includes hypertension and deep vein thrombosis and is on Eliquis. She denies any blood in her stool or black stool. No hematemesis. Last episode of emesis was yesterday. 11/01/2024 Patient seen and examined sitting up in bed. She states nausea and vomiting have improved. She also states that her dizziness has improved. MRI with no acute findings. CT abdomen pelvis overall no acute findings but did report possible GERD, segmental folding thickening along the cecum and ascending colon correlate for nonspecific infectious or inflammatory colitis. Patient states she has not had any bowel movements only 1 yesterday. Denies any abdominal pain states that has improved as well. Objective - Vital Signs Vital signs: Vital Signs Temp 97.7 F 11/01/24 02:00 Pulse 79 11/01/24 02:00 Resp 17 11/01/24 02:00 BP 143/93 11/01/24 02:00 Pulse Ox 96 11/01/24 02:00 FiO2 Intake & Output 10/31/24 10/31/24 11/01/24 06:59 18:59 06:59 Intake Total 1550 Output Total 400 Balance 1550 -400 Weight 113.398 kg Intake: Intake, IV Titration 900 Amount Dextrose 5%-0.9% NaCl 1, 900 000 ml @ 100 mls/hr IV . Q10H [facility] Rx#:[id number] Oral 650 Output: Urine 400 Other: Voiding Method Bedside Commode Bedside Commode # Voids 1 4 3 # Bowel Movements 1 - Exam General appearance: The patient is alert, oriented, appears in no acute distress. HET: Head is normocephalic and atraumatic. Conjunctiva pink. Sclera anicteric. Neck: Supple without lymphadenopathy. Abdomen: Soft, nontender, nondistended. Extremities: Normal skin color and turgor. No pedal edema Skin: No rashes, no jaundice Neurological: No focal deficits. Alert and oriented. - Labs CBC & Chem 7: 11/01/24 03:24 11/01/24 03:24 Labs: Abnormal Lab Results - Last 24 Hours (Table) 10/31/24 10/31/24 10/31/24 Range/Units 11:58 17:24 20:42 MCHC (32.0-37.0) g/dL Neutrophils # (1.80-7.70) 10*3/uL Eosinophils # (0.04-0.35) 10*3/uL Sodium (137-145) mmol/L Potassium (3.5-5.1) mmol/L Carbon Dioxide (22-30) mmol/L Creatinine (0.52-1.04) mg/dL Glucose (74-99) mg/dL POC Glucose (mg/dL) 126 H 146 H (70-110) mg/dL C-Reactive Protein (<1.0) mg/dL Total Protein (6.3-8.2) g/dL Urine Ketones 1+ H (Negative) 11/01/24 11/01/24 11/01/24 Range/Units 03:24 03:24 06:01 MCHC 37.1 H (32.0-37.0) g/dL Neutrophils # 7.76 H (1.80-7.70) 10*3/uL Eosinophils # 0.01 L (0.04-0.35) 10*3/uL Sodium 135 L (137-145) mmol/L Potassium 2.6 L* (3.5-5.1) mmol/L Carbon Dioxide 18 L (22-30) mmol/L Creatinine 0.43 L (0.52-1.04) mg/dL Glucose 138 H (74-99) mg/dL POC Glucose (mg/dL) 157 H (70-110) mg/dL C-Reactive Protein 2.8 H (<1.0) mg/dL Total Protein 6.2 L (6.3-8.2) g/dL Urine Ketones (Negative) Assessment and Plan (1) Nausea and vomiting Narrative/Plan: 64-year-old female with recent onset of positional vertigo as well as nausea and vomiting for last 5 days duration also associated with diarrhea however appears that patient has had chronic diarrhea but is currently been going 3-5 times a day. Nausea and vomiting may be secondary to positional vertigo. Neurology is following and patient has been started on Antivert. She is also on Zofran with improvement in her nausea and vomiting. Patient also with recurrent right lower abdominal pain and states that she had bowel obstruction in the past. Will obtain CT of abdomen pelvis, continue symptomatic care with antiemetics and IV fluids, and will collect stool samples. Nausea and vomiting subsided. Vertigo improved. Nausea and vomiting likely secondary to vertigo. Did not Current Visit: Yes Status: Acute Code(s): R11.2 - NAUSEA WITH VOMITING, UNSPECIFIED SNOMED Code(s): 33990327 (2) Chronic diarrhea Narrative/Plan: Diarrhea improved as well. Stool samples not collected secondary to no bowel movement. Current Visit: Yes Status: Acute Code(s): K52.9 - NONINFECTIVE GASTROENTERITIS AND COLITIS, UNSPECIFIED SNOMED Code(s): 808437541 (3) Abdominal pain Current Visit: Yes Status: Acute Code(s): R10.9 - UNSPECIFIED ABDOMINAL PAIN SNOMED Code(s): 72721655 (4) Vertigo Current Visit: Yes Status: Acute Code(s): R42 - DIZZINESS AND GIDDINESS SNOMED Code(s): 562207940 Plan: 1. Continue symptomatic and supportive care 2. Protonix 40 mg daily for GI prophylaxis 3. Antiemetics as needed 4. Continue Antivert 5. Stool studies ordered however not collected secondary to no bowel movement 6. Diet as tolerated 7. May continue dicyclomine as needed 8. CT abdomen pelvis with contrast ordered and reviewed 9. No further GI workup indicated Thank you for this consultation, patient is cleared from gastroenterology for discharge. Gastroenterology will sign off at this time. Dr. Naina Marks I agree with the dictator's note, documented as a scribe by Shea Siddiqui.
[2024-11-01] MEDS ORDERED: Potassium Replacement Protocol 1 EACH MISC MISCELLANE PRN (10:15)
[2024-11-01 12:10] LABS: Glucose,Whole Blood 161 mg/dL (70-110)
--- NOTE | 2024-11-01 12:31 | P.PN ---
Subjective Progress Note Date: 11/01/24 I am following-up with the patient and feels her dizziness is improving. Objective - Vital Signs Vital signs: Vital Signs Temp 97.3 F L 11/01/24 08:37 Pulse 76 11/01/24 08:37 Resp 14 11/01/24 08:37 BP 124/83 11/01/24 08:37 Pulse Ox 97 11/01/24 08:37 FiO2 Intake & Output 10/31/24 11/01/24 11/01/24 18:59 06:59 18:59 Intake Total 1550 Output Total 400 Balance 1550 -400 Intake: Intake, IV Titration 900 Amount Dextrose 5%-0.9% NaCl 1, 900 000 ml @ 100 mls/hr IV . Q10H [facility] Rx#:[id number] Oral 650 Output: Urine 400 Other: Voiding Method Bedside Commode # Voids 4 3 # Bowel Movements 1 - Exam GENERAL: The patient is not in acute distress. NEUROLOGICAL: Higher mental function: The patient is awake, alert, oriented to self, place and time. Patient is following commands. No aphasia and no neglect. Cranial nerves: The pupils are round, equal and reactive to light and accomm odation. Visual jarrell are full to confrontation throughout. Extraocular movement is subtle nystagmus that is worse looking to left. Facial sensation is normal to touch throughout. The facial strength is normal throughout. Hearing is mildly decreased bilaterally to hand rub. Tongue is midline and moved [id number] without any difficulty. No dysarthria is noted. Some of the workup during this hospital visit consisted of: CT enterography of the head and neck is reported as no evidence of dissection or cervical internal carotid artery or vertebral artery. No any evidence of significant stenosis at the carotid bifurcation. No evidence of intracranial high-grade stenosis or intracranial aneurysm. MRI Brain: No evidence of intracranial mass, acute/subactue infarct or abnormal enhancement. - Labs CBC & Chem 7: 11/01/24 03:24 11/01/24 09:01 Labs: Abnormal Lab Results - Last 24 Hours (Table) 10/31/24 10/31/24 11/01/24 Range/Units 17:24 20:42 03:24 MCHC 37.1 H (32.0-37.0) g/dL Neutrophils # 7.76 H (1.80-7.70) 10*3/uL Eosinophils # 0.01 L (0.04-0.35) 10*3/uL Sodium (137-145) mmol/L Potassium (3.5-5.1) mmol/L Carbon Dioxide (22-30) mmol/L Creatinine (0.52-1.04) mg/dL Glucose (74-99) mg/dL POC Glucose (mg/dL) 146 H (70-110) mg/dL C-Reactive Protein (<1.0) mg/dL Total Protein (6.3-8.2) g/dL Urine Ketones 1+ H (Negative) 11/01/24 11/01/24 11/01/24 Range/Units 03:24 06:01 09:01 MCHC (32.0-37.0) g/dL Neutrophils # (1.80-7.70) 10*3/uL Eosinophils # (0.04-0.35) 10*3/uL Sodium 135 L (137-145) mmol/L Potassium 2.6 L* 2.7 L* (3.5-5.1) mmol/L Carbon Dioxide 18 L (22-30) mmol/L Creatinine 0.43 L (0.52-1.04) mg/dL Glucose 138 H (74-99) mg/dL POC Glucose (mg/dL) 157 H (70-110) mg/dL C-Reactive Protein 2.8 H (<1.0) mg/dL Total Protein 6.2 L (6.3-8.2) g/dL Urine Ketones (Negative) 11/01/24 Range/Units 12:08 MCHC (32.0-37.0) g/dL Neutrophils # (1.80-7.70) 10*3/uL Eosinophils # (0.04-0.35) 10*3/uL Sodium (137-145) mmol/L Potassium (3.5-5.1) mmol/L Carbon Dioxide (22-30) mmol/L Creatinine (0.52-1.04) mg/dL Glucose (74-99) mg/dL POC Glucose (mg/dL) 161 H (70-110) mg/dL C-Reactive Protein (<1.0) mg/dL Total Protein (6.3-8.2) g/dL Urine Ketones (Negative) Assessment and Plan Assessment: This is a 64-year-old woman who has been having nausea, vomiting, diarrhea and dizziness for the last 5 days. Recently diagnosed with gastroenteritis and is prescribed Zofran Acute Vertigo seems more peripheral and seems triggered by her recent Gastroenteritis with electrolyte imbalance--MRI Brain is negative for acute process or enhancement. Today feels dizziness is better. Recent diagnosis of gastroenteritis Hypokalemia Plan: On Zofran 4 mg every 8 hours as needed. Meclizine 25 mg 1 tablet 3 times daily scheduled for total of 7 days and after that as needed. Recommend continuing IV fluids If continues to feel dizzy down the line, recommend ENT and vestibular rehab therapy as outpatient. Will defer the rest of medical management to primary team. Otherwise, no additional neurological work-up. Will sign off. Please reconsult if needed. Time with Patient: Less than 30
--- NOTE | 2024-11-01 15:09 | P.PN ---
Subjective Progress Note Date: 11/01/24 Principal diagnosis: Reason for follow-up is colitis/pneumonitis Patient is a 64-year-old female with a past medical history significant for Atrial Fibrillation, COPD, Deep Vein Thrombosis (DVT), Eye Disorder, Hyperlipidemia, Hypertension, Pneumonia, Sleep Apnea/CPAP/BIPAP presenting to the hospital presented initially for evaluation of nausea vomiting and diarrhea and has been complaining of some dizziness CT abdominal pelvis right middle lobe groundglass opacity concerning for pneumonitis prompted this consultation. On today's evaluation that is 11/01/2024, the patient continues to be afebrile, the patient is on room air and breathing comfortably, the Pt denies having any chest pain or any worsening cough, the patient denies having any abdominal pain no vomiting and no further diarrhea. Patient did have potassium of 3.2 white count is 9.75 creatinine 0.43 Objective - Vital Signs Vital signs: Vital Signs Temp 97.3 F L 11/01/24 08:37 Pulse 76 11/01/24 08:37 Resp 14 11/01/24 08:37 BP 124/83 11/01/24 08:37 Pulse Ox 97 11/01/24 08:37 FiO2 Intake & Output 10/31/24 11/01/24 11/01/24 18:59 06:59 18:59 Intake Total 1550 Output Total 400 Balance 1550 -400 Intake: Intake, IV Titration 900 Amount Dextrose 5%-0.9% NaCl 1, 900 000 ml @ 100 mls/hr IV . Q10H [facility] Rx#:[id number] Oral 650 Output: Urine 400 Other: Voiding Method Bedside Commode # Voids 4 3 # Bowel Movements 1 - Exam GENERAL DESCRIPTION: An elderly female lying in bed in no distress RESPIRATORY SYSTEM: Unlabored breathing , decreased breath sounds at bases HEART: S1 S2 regular rate and rhythm , ABDOMEN: Soft , no tenderness EXTREMITIES: No edema feet - Labs CBC & Chem 7: 11/01/24 03:24 11/01/24 14:35 Labs: Abnormal Lab Results - Last 24 Hours (Table) 10/31/24 10/31/24 11/01/24 Range/Units 17:24 20:42 03:24 MCHC 37.1 H (32.0-37.0) g/dL Neutrophils # 7.76 H (1.80-7.70) 10*3/uL Eosinophils # 0.01 L (0.04-0.35) 10*3/uL Sodium (137-145) mmol/L Potassium (3.5-5.1) mmol/L Carbon Dioxide (22-30) mmol/L Creatinine (0.52-1.04) mg/dL Glucose (74-99) mg/dL POC Glucose (mg/dL) 146 H (70-110) mg/dL C-Reactive Protein (<1.0) mg/dL Total Protein (6.3-8.2) g/dL Urine Ketones 1+ H (Negative) 11/01/24 11/01/24 11/01/24 Range/Units 03:24 06:01 09:01 MCHC (32.0-37.0) g/dL Neutrophils # (1.80-7.70) 10*3/uL Eosinophils # (0.04-0.35) 10*3/uL Sodium 135 L (137-145) mmol/L Potassium 2.6 L* 2.7 L* (3.5-5.1) mmol/L Carbon Dioxide 18 L (22-30) mmol/L Creatinine 0.43 L (0.52-1.04) mg/dL Glucose 138 H (74-99) mg/dL POC Glucose (mg/dL) 157 H (70-110) mg/dL C-Reactive Protein 2.8 H (<1.0) mg/dL Total Protein 6.2 L (6.3-8.2) g/dL Urine Ketones (Negative) 11/01/24 Range/Units 12:08 MCHC (32.0-37.0) g/dL Neutrophils # (1.80-7.70) 10*3/uL Eosinophils # (0.04-0.35) 10*3/uL Sodium (137-145) mmol/L Potassium (3.5-5.1) mmol/L Carbon Dioxide (22-30) mmol/L Creatinine (0.52-1.04) mg/dL Glucose (74-99) mg/dL POC Glucose (mg/dL) 161 H (70-110) mg/dL C-Reactive Protein (<1.0) mg/dL Total Protein (6.3-8.2) g/dL Urine Ketones (Negative) Assessment and Plan (1) Leukocytosis Current Visit: Yes Status: Acute Code(s): D72.829 - ELEVATED WHITE BLOOD CELL COUNT, UNSPECIFIED SNOMED Code(s): 490983168 (2) Colitis Current Visit: Yes Status: Acute Code(s): K52.9 - NONINFECTIVE GASTROENTERITIS AND COLITIS, UNSPECIFIED SNOMED Code(s): 20027141 (3) Pneumonitis Current Visit: Yes Status: Acute Code(s): J98.4 - OTHER DISORDERS OF LUNG SNOMED Code(s): 725501162 Plan: 1patient with elevated white count in this patient presented hospital with nausea vomiting and did have diarrhea in this patient did have a abnormal CT concerning for possible colitis likely infectious versus noninfectious etiology there was some abnormality of the right lower lobe with concern for possible aspiration pneumonitis 2-patient did have a some improvement in her symptoms to continue with Rocephin and Flagyl and monitor clinical course closely Dictation was produced using [employer] dictation software. please excuse any grammatical, word or spelling errors.
[2024-11-01] MEDS: ACETAMINOPHEN TAB 325 MG TAB PO PRN (20:17)
--- NOTE | 2024-11-02 00:45 | PN ---
PROGRESS NOTE DATE OF SERVICE: 10/31/2024 SUBJECTIVE: Follow up with the patient. No further vomiting, but continues to have dizziness. OBJECTIVE: VITAL SIGNS: Temperature 98.2, pulse 77, respiratory rate 18-20, blood pressure 142/74, and O2 98%. NEURO: CT enterography of the head and neck was normal. Cranial nerves are intact. CARDIOVASCULAR: S1, S2. LUNGS: Clear. LABORATORY DATA: Reviewed. Glucose 149, calcium 10.3. ASSESSMENT AND PLAN: She had nausea, vomiting, diarrhea, and dizziness for the last 5 days. No vomiting since she has been admitted gastroenteritis, Reglan for possible nausea and vomiting. Meclizine p.r.n., fluids. Prognosis guarded. MMODL / IJN: [id number] /
[2024-11-02] MEDS: POTASSIUM CHLORIDE ER 20 MEQ TAB.ER PO SCH (14:17)
--- NOTE | 2024-11-02 14:19 | P.PN ---
Subjective Progress Note Date: 11/02/24 Principal diagnosis: Reason for follow-up is colitis/pneumonitis Patient is a 64-year-old female with a past medical history significant for Atrial Fibrillation, COPD, Deep Vein Thrombosis (DVT), Eye Disorder, Hyperlipidemia, Hypertension, Pneumonia, Sleep Apnea/CPAP/BIPAP presenting to the hospital presented initially for evaluation of nausea vomiting and diarrhea and has been complaining of some dizziness CT abdominal pelvis right middle lobe groundglass opacity concerning for pneumonitis prompted this consultation. On today's evaluation that is 11/03/2023, patient did have a temperature of 98 F this morning and denies having any chills, patient is on room air and breathing comfortably no chest pain or cough, the patient did not have any nausea vomiting abdominal pain or any diarrhea still complaining of some pain to the left side of the face and dizziness. Patient stool for C. difficile reported negative, no new labs were drawn today Objective - Vital Signs Vital signs: Vital Signs Temp 98.0 F 11/02/24 07:00 Pulse 65 11/02/24 07:00 Resp 16 11/02/24 07:00 BP 151/91 11/02/24 07:00 Pulse Ox 95 11/02/24 07:00 FiO2 Intake & Output 11/01/24 11/02/24 11/02/24 18:59 06:59 18:59 Intake Total 250 Balance 250 Intake: Oral 250 Other: Voiding Method Bedside Commode Toilet Bedside Commode # Voids 1 1 # Bowel Movements 1 - Exam GENERAL DESCRIPTION: An elderly female lying in bed in no distress RESPIRATORY SYSTEM: Unlabored breathing , decreased breath sounds at bases HEART: S1 S2 regular rate and rhythm , ABDOMEN: Soft , no tenderness EXTREMITIES: No edema feet - Labs CBC & Chem 7: 11/01/24 03:24 11/01/24 14:35 Labs: Abnormal Lab Results - Last 24 Hours (Table) 11/01/24 Range/Units 14:35 Potassium 3.2 L (3.5-5.1) mmol/L Assessment and Plan (1) Leukocytosis Current Visit: Yes Status: Acute Code(s): D72.829 - ELEVATED WHITE BLOOD CELL COUNT, UNSPECIFIED SNOMED Code(s): 347019045 (2) Colitis Current Visit: Yes Status: Acute Code(s): K52.9 - NONINFECTIVE GASTROENTERITIS AND COLITIS, UNSPECIFIED SNOMED Code(s): 90820705 (3) Pneumonitis Current Visit: Yes Status: Acute Code(s): J98.4 - OTHER DISORDERS OF LUNG SNOMED Code(s): 061853772 Plan: 1patient with elevated white count in this patient presented hospital with nausea vomiting and did have diarrhea in this patient did have a abnormal CT concerning for possible colitis likely infectious versus noninfectious etiology there was some abnormality of the right lower lobe with concern for possible aspiration pneumonitis 2-patient afebrile white count is normal stool for C. difficile negative patient will be treated with Rocephin and Flagyl and monitor clinical course closely Dictation was produced using [employer] dictation software. please excuse any grammatical, word or spelling errors. Time with Patient: Less than 30
[2024-11-02 20:44] LABS: Glucose,Whole Blood 167 mg/dL (70-110)
[2024-11-02] MEDS: ZOLPIDEM 5 MG TAB PO PRN (21:35)
[2024-11-03 06:15] LABS: Glucose,Whole Blood 117 mg/dL (70-110)
--- NOTE | 2024-11-03 17:55 | P.PN ---
Subjective Progress Note Date: 11/03/24 Principal diagnosis: Reason for follow-up is colitis/pneumonitis Patient is a 64-year-old female with a past medical history significant for Atrial Fibrillation, COPD, Deep Vein Thrombosis (DVT), Eye Disorder, Hyperlipidemia, Hypertension, Pneumonia, Sleep Apnea/CPAP/BIPAP presenting to the hospital presented initially for evaluation of nausea vomiting and diarrhea and has been complaining of some dizziness CT abdominal pelvis right middle lobe groundglass opacity concerning for pneumonitis prompted this consultation. On today's evaluation that is 11/03/2024, Patient is afebrile patient is currently on room air and denies having any shortness of breath, the patient denies any chest pain or cough, the patient denies any nausea vomiting did not have any abdominal pain and no diarrhea. No new lab has been obtained today stool cultures so far negative Objective - Vital Signs Vital signs: Vital Signs Temp 98.3 F 11/03/24 08:31 Pulse 63 11/03/24 08:31 Resp 16 11/03/24 08:31 BP 159/99 11/03/24 08:31 Pulse Ox 100 11/03/24 08:31 FiO2 Intake & Output 11/02/24 11/03/24 11/03/24 18:59 06:59 18:59 Intake Total 2790 Balance 2790 Intake: Intake, IV Titration 1100 Amount Dextrose 5%-0.9% NaCl 1, 1100 000 ml @ 100 mls/hr IV . Q10H [facility] Rx#:[id number] Oral 1690 Other: Voiding Method Toilet Bedside Commode # Voids 1 1 # Bowel Movements 1 - Exam GENERAL DESCRIPTION: An elderly female lying in bed in no distress RESPIRATORY SYSTEM: Unlabored breathing , decreased breath sounds at bases HEART: S1 S2 regular rate and rhythm , ABDOMEN: Soft , no tenderness EXTREMITIES: No edema feet - Labs CBC & Chem 7: 11/01/24 03:24 11/01/24 14:35 Labs: Abnormal Lab Results - Last 24 Hours (Table) 11/02/24 11/03/24 Range/Units 20:43 06:13 POC Glucose (mg/dL) 167 H 117 H (70-110) mg/dL Microbiology - Last 24 Hours (Table) 11/01/24 19:29 Stool Culture - Preliminary Stool Assessment and Plan (1) Leukocytosis Current Visit: Yes Status: Acute Code(s): D72.829 - ELEVATED WHITE BLOOD CELL COUNT, UNSPECIFIED SNOMED Code(s): 569227918 (2) Colitis Current Visit: Yes Status: Acute Code(s): K52.9 - NONINFECTIVE GASTROENTERITIS AND COLITIS, UNSPECIFIED SNOMED Code(s): 47228830 (3) Pneumonitis Current Visit: Yes Status: Acute Code(s): J98.4 - OTHER DISORDERS OF LUNG SNOMED Code(s): 152176409 Plan: 1patient with elevated white count in this patient presented hospital with nausea vomiting and did have diarrhea in this patient did have a abnormal CT concerning for possible colitis likely infectious versus noninfectious etiology there was some abnormality of the right lower lobe with concern for possible aspiration pneumonitis 2-patient is afebrile white count is normal, patient stool for C. difficile negative, stool culture currently pending 3patient will be treated with Rocephin and Flagyl and monitor clinical course closely Dictation was produced using [employer] dictation software. please excuse any grammatical, word or spelling errors. Time with Patient: Less than 30
[2024-11-03 20:12] LABS: Glucose,Whole Blood 140 mg/dL (70-110)
[2024-11-04 06:20] LABS: Glucose,Whole Blood 124 mg/dL (70-110)
[2024-11-04 20:25] LABS: Glucose,Whole Blood 128 mg/dL (70-110)
--- NOTE | 2024-11-04 22:16 | P.PN ---
Subjective Progress Note Date: 11/04/24 Principal diagnosis: Reason for follow-up is colitis/pneumonitis Patient is a 64-year-old female with a past medical history significant for Atrial Fibrillation, COPD, Deep Vein Thrombosis (DVT), Eye Disorder, Hyperlipidemia, Hypertension, Pneumonia, Sleep Apnea/CPAP/BIPAP presenting to the hospital presented initially for evaluation of nausea vomiting and diarrhea and has been complaining of some dizziness CT abdominal pelvis right middle lobe groundglass opacity concerning for pneumonitis prompted this consultation. On today's evaluation that is 11/04/2024, patient has been afebrile, patient is breathing comfortably and is currently on room air, patient denies having any chest pain and cough, patient denies nausea vomiting or diarrhea and no abdominal pain. No new lab has been obtained today cultures so far negative Objective - Vital Signs Vital signs: Vital Signs Temp 97.9 F 11/04/24 07:05 Pulse 68 11/04/24 07:05 Resp 18 11/04/24 11:17 BP 112/76 11/04/24 07:05 Pulse Ox 99 11/04/24 07:05 FiO2 Intake & Output 11/03/24 11/04/24 11/04/24 18:59 06:59 18:59 Intake Total 250 Balance 250 Intake: Oral 250 Other: Voiding Method Toilet Toilet Bedside Commode Bedside Commode # Voids 4 1 - Exam GENERAL DESCRIPTION: An elderly female lying in bed in no distress RESPIRATORY SYSTEM: Unlabored breathing , decreased breath sounds at bases HEART: S1 S2 regular rate and rhythm , ABDOMEN: Soft , no tenderness EXTREMITIES: No edema feet - Labs CBC & Chem 7: 11/01/24 03:24 11/01/24 14:35 Labs: Abnormal Lab Results - Last 24 Hours (Table) 11/03/24 11/04/24 Range/Units 20:11 06:18 POC Glucose (mg/dL) 140 H 124 H (70-110) mg/dL Microbiology - Last 24 Hours (Table) 11/01/24 19:29 Stool Culture - Preliminary Stool Assessment and Plan (1) Leukocytosis Current Visit: Yes Status: Acute Code(s): D72.829 - ELEVATED WHITE BLOOD CELL COUNT, UNSPECIFIED SNOMED Code(s): 193464036 (2) Colitis Current Visit: Yes Status: Acute Code(s): K52.9 - NONINFECTIVE GASTROENTERITIS AND COLITIS, UNSPECIFIED SNOMED Code(s): 03929154 (3) Pneumonitis Current Visit: Yes Status: Acute Code(s): J98.4 - OTHER DISORDERS OF LUNG SNOMED Code(s): 619432742 Plan: 1patient with elevated white count in this patient presented hospital with nausea vomiting and did have diarrhea in this patient did have a abnormal CT concerning for possible colitis likely infectious versus noninfectious etiology there was some abnormality of the right lower lobe with concern for possible aspiration pneumonitis 2-patient is afebrile white count is normal, patient stool for C. difficile negative, stool culture so far negative 3patient to continue with Rocephin and Flagyl while inpatient will be transitioned to oral antibiotic on discharge Dictation was produced using [employer] dictation software. please excuse any grammatical, word or spelling errors. Time with Patient: Less than 30
--- NOTE | 2024-11-05 01:00 | PN ---
PROGRESS NOTE SUBJECTIVE: A white female 64-year-old on, 1. Brimonidine eye drops. 2. Calcium. 3. Lipitor 40 daily. 4. Eliquis 5 b.i.d. 5. Norvasc 5 mg daily. 6. Imdur 60 daily. 7. Apresoline IV for systolic over 160. 8. Cozaar 100 mg daily. 9. Mag oxide 200 mg daily. 10.Antivert 25 q.8h p.r.n. 11.Toprol-XL 50 mg daily. 12.Flagyl 500 t.i.d. is stable. PLAN: Condition is stable. Prognosis is guarded. Ambulate as tolerated. Continue current treatment. Follow up in next 24 to 48 hours. Prognosis guarded. MMODL / IJN: [id number] /
[2024-11-05 09:25] LABS: Basophils # (A) 0.04 10*3/uL (0.00-0.10); Basophils % (A) 0.4 %; Eosinophils # (A) 0.24 10*3/uL (0.04-0.35); Eosinophils % (A) 2.2 %; HCT 35.9 % (37.2-46.3); HGB 12.9 g/dL (12.0-15.0); Lymphocytes # (A) 1.04 10*3/uL (0.90-5.00); Lymphocytes % (A) 9.3 %; MCH 32.0 pg (27.0-32.0); MCHC 35.9 g/dL (32.0-37.0); MCV 89.1 fL (80.0-97.0); Monocytes # (A) 0.70 10*3/uL (0.20-1.00); Monocytes % (A) 6.3 %; Neutrophils # (A) 9.07 10*3/uL (1.80-7.70); Neutrophils % (A) 81.2 %; Platelet Count 235 10*3/uL (140-440); RBC 4.03 10*6/uL (4.10-5.20); RDW 14.7 % (11.5-14.5); WBC 11.16 10*3/uL (4.50-10.00)
[2024-11-05 09:44] LABS: ALT 15 U/L (4-34); AST 18 U/L (14-36); African American GFR (CKD) >90 (>60 ml/min/1.73 sqM); Albumin 3.5 g/dL (3.5-5.0); Albumin/Globulin Ratio 1.5; Alkaline Phosphatase 99 U/L (38-126); Anion Gap 9 mmol/L; Blood Urea Nitrogen 11 mg/dL (7-17); Calcium 9.7 mg/dL (8.4-10.2); Carbon Dioxide 26 mmol/L (22-30); Chloride 105 mmol/L (98-107); Globulin 2.4 g/dL; Glucose 144 mg/dL (74-99); Non-African American GFR(CKD) >90 (>60 ml/min/1.73 sqM); Potassium 3.0 mmol/L (3.5-5.1); Sodium 140 mmol/L (137-145); Total Protein 5.9 g/dL (6.3-8.2)
[2024-11-05] MEDS: POTASSIUM CHLORIDE ER 20 MEQ TAB.ER PO SCH (11:05)
--- NOTE | 2024-11-05 15:07 | P.PN ---
Subjective Progress Note Date: 11/05/24 Principal diagnosis: Reason for follow-up is colitis/pneumonitis Patient is a 64-year-old female with a past medical history significant for Atrial Fibrillation, COPD, Deep Vein Thrombosis (DVT), Eye Disorder, Hyperlipidemia, Hypertension, Pneumonia, Sleep Apnea/CPAP/BIPAP presenting to the hospital presented initially for evaluation of nausea vomiting and diarrhea and has been complaining of some dizziness CT abdominal pelvis right middle lobe groundglass opacity concerning for pneumonitis prompted this consultation. On today's evaluation that is 11/05/2024, Patient is afebrile this morning patient denies having any chest pain shortness of breath or cough, the patient is currently on room air, patient denies any abdominal pain no diarrhea no nausea no vomiting. Patient white count is 11.16 creatinine 0.54 stool culture negative Objective - Vital Signs Vital signs: Vital Signs Temp 98.3 F 11/05/24 13:51 Pulse 81 11/05/24 13:51 Resp 18 11/05/24 13:51 BP 90/57 11/05/24 13:51 Pulse Ox 95 11/05/24 13:51 FiO2 Intake & Output 11/04/24 11/05/24 11/05/24 18:59 06:59 18:59 Intake Total 450 Balance 450 Intake: Oral 450 Other: Voiding Method Toilet Toilet Toilet Bedside Commode # Voids 2 3 2 # Bowel Movements 1 - Exam GENERAL DESCRIPTION: An elderly female lying in bed in no distress RESPIRATORY SYSTEM: Unlabored breathing , decreased breath sounds at bases HEART: S1 S2 regular rate and rhythm , ABDOMEN: Soft , no tenderness EXTREMITIES: No edema feet - Labs CBC & Chem 7: 11/05/24 08:39 11/05/24 08:39 Labs: Abnormal Lab Results - Last 24 Hours (Table) 11/04/24 11/05/24 11/05/24 Range/Units 20:22 08:39 08:39 WBC 11.16 H (4.50-10.00) 10*3/uL RBC 4.03 L (4.10-5.20) 10*6/uL Hct 35.9 L (37.2-46.3) % RDW 14.7 H (11.5-14.5) % Immature Gran # 0.07 H (0.00-0.04) 10*3/uL Neutrophils # 9.07 H (1.80-7.70) 10*3/uL Potassium 3.0 L (3.5-5.1) mmol/L Glucose 144 H (74-99) mg/dL POC Glucose (mg/dL) 128 H (70-110) mg/dL Total Protein 5.9 L (6.3-8.2) g/dL Microbiology - Last 24 Hours (Table) 11/01/24 19:29 Stool Culture - Final Stool Assessment and Plan (1) Leukocytosis Current Visit: Yes Status: Acute Code(s): D72.829 - ELEVATED WHITE BLOOD CELL COUNT, UNSPECIFIED SNOMED Code(s): 886673615 (2) Colitis Current Visit: Yes Status: Acute Code(s): K52.9 - NONINFECTIVE GASTROENTERITIS AND COLITIS, UNSPECIFIED SNOMED Code(s): 50060797 (3) Pneumonitis Current Visit: Yes Status: Acute Code(s): J98.4 - OTHER DISORDERS OF LUNG SNOMED Code(s): 055318272 Plan: 1patient with elevated white count in this patient presented hospital with nausea vomiting and did have diarrhea in this patient did have a abnormal CT concerning for possible colitis likely infectious versus noninfectious etiology there was some abnormality of the right lower lobe with concern for possible aspiration pneumonitis 2-patient is afebrile white count is normal, patient stool for C. difficile negative, stool culture so far negative 3patient slowly clinical improvement to continue with Rocephin and Flagyl while in patient, will transition to oral Ceftin and Flagyl on discharge Dictation was produced using [employer] dictation software. please excuse any grammatical, word or spelling errors. Time with Patient: Less than 30
[2024-11-05 21:08] LABS: Glucose,Whole Blood 122 mg/dL (70-110)
[2024-11-06 02:35] VITALS: RESP 16
[2024-11-06] MEDS: CEFDINIR 300 MG CAP PO SCH (02:48)
[2024-11-06] MEDS: PANTOPRAZOLE 40 MG TABLET PO SCH (06:36)
[2024-11-06 07:23] VITALS: BP 123/70; TEMP 98.2
[2024-11-06 09:19] VITALS: PULSE 71
--- NOTE | 2024-11-06 16:52 | PN ---
PROGRESS NOTE SUBJECTIVE: A 64-year-old white female, came in with nausea and vomiting. She has had some dizziness. She has had a little nausea and vomiting over the last couple days. She remains on broad-spectrum antibiotics, hypertension medicines, on atrial fibrillation medications. She is on Rocephin her antibiotics. She is on Cozaar for hypertension, Antivert for dizziness, Toprol-XL for hypertension, Flagyl for possible bowel infections, Singulair for allergies and asthma. She is up ambulating better. OBJECTIVE: CARDIOVASCULAR: S1, S2. LUNGS: Clear. GI: Soft. EXTREMITIES: She has swelling of her left knee. She is up ambulating better. PSYCH: Fair mood and affect. NEUROLOGIC: Alert and oriented x3. VITAL SIGNS: Temperature 98.5, blood pressure 107/70, O2 97% on room air, pulse is 70s to 80s. ASSESSMENT AND PLAN: Seen by Dr. Hernandez for infection for colitis, pneumonitis, afebrile. She is doing better. No nausea, vomiting, or diarrhea. White count 7.16. She has leukocytosis, colitis, pneumonitis. Appears to be doing better. At this time, she is up ambulating. Possibly will go home in the next 24 to 48 hours. The patient's stool for C diff is negative. Stool culture was negative. She is on Rocephin and Flagyl. Possibly switch to oral Ceftin and Flagyl on discharge and possibly go home tomorrow. Prognosis guarded. MMODL / IJN: [id number] /
== END 2024-11-06 10:46 | disposition home or self-care (01) ==
LOC: EC 13:40 → 1SOBS 17:25 → 4SSUR 11-01 17:47
PROVIDERS: ADMIT Family Medicine; ATTEND Family Medicine
DX: K52.9 Noninfective gastroenteritis and colitis, unspecified (principal); E86.0 Dehydration; J98.4 Other disorders of lung; E87.6 Hypokalemia; I10 Essential (primary) hypertension; E78.5 Hyperlipidemia, unspecified; G47.30 Sleep apnea, unspecified; I48.91 Unspecified atrial fibrillation; J44.9 Chronic obstructive pulmonary disease, unspecified; F32.A Depression, unspecified; Z86.718 Personal history of other venous thrombosis and embolism; Z87.891 Personal history of nicotine dependence; Z90.49 Acquired absence of other specified parts of digestive tract; Z79.01 Long term (current) use of anticoagulants; Z79.899 Other long term (current) drug therapy; Z91.040 Latex allergy status
CPT/HCPCS: 96376 ×7; 96361 ×2; 96365 ×2; 96366 ×6; 96367; 96375 ×2; 99285; 36415; 97161; 97166; 36410; 76937; 80053 ×3; 80048; 84132 ×2; 85025 ×4; 86140; 81003; 87324; 87045; 87046; 84145; 70496; 70498; 74177; 70553; G0378 ×8; C1751; J2765; J3360; J2405; J0696 ×6; J3480; Q9967 ×2; A9585; J1920; J2470 ×8